=== PATIENT | female | born 1960 | race Caucasian/White ===

== ENCOUNTER 2018-10-15 10:56 | Outpatient (RCR) | payer OTHER | END 2018-10-26 14:17 | disposition home or self-care (01) | LOC: WSOT 10:56 | DX: Z02.71 Encounter for disability determination (principal); M47.816 Spondylosis without myelopathy or radiculopathy, lumbar region; M47.814 Spondylosis without myelopathy or radiculopathy, thoracic region; M17.11 Unilateral primary osteoarthritis, right knee; Z96.7 Presence of other bone and tendon implants; Z98.890 Other specified postprocedural states ==